=== PATIENT | female | born 1935 | race Caucasian/White ===

== ENCOUNTER 2016-09-06 05:44 | Day surgery (SDC) | payer MEDICARE ==
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
[~2016-09-06 05:44] MED LIST: ACET500CAP PO; AMB10 PO; CARD30 PO; HCTZ25B PO; KLOR-CON M2020 MEQ PO; MOTRIN IB200 MG PO; PAX20 PO; PEP20 PO; PRILO PO; PRIN10 PO; ZOCOR40 PO
[2016-09-06 06:14] LABS: HEMATOCRIT 39.9 % (36.0-48.0); HEMOGLOBIN 13.1 g/dL (12.0-16.0)
[2016-09-06 06:27] LABS: BUN (BLOOD UREA NITROGEN) 19 MG/DL (6-23); CALCIUM, SERUM 9.5 MG/DL (8.5-10.4); CHLORIDE, SERUM 105 MMOL/L (96-112); CO2 (CARBON DIOXIDE) 29 MMOL/L (24-34); CREATININE 1.06 MG/DL (0.55-1.02); GFR AFRICAN AMERICAN 58 ML/MIN (>=60); GFR NON AFRICAN AMERICAN 50 ML/MIN (>=60); GLUCOSE, SERUM 90 MG/DL (60-99); POTASSIUM, SERUM 3.8 MMOL/L (3.5-5.3); SODIUM, SERUM 141 MMOL/L (135-148)
== END 2016-09-06 23:59 | disposition home or self-care (01) ==
LOC: DMU 05:44
PROVIDERS: Anesthesiology; Thoracic Surgery (Cardiothoracic Vascular Surgery)
PROC: 07974ZX Drainage of Thorax Lymphatic, Percutaneous Endoscopic Approach, Diagnostic (ICD-10-PCS; principal; 2016-09-06 08:00)
DX: C34.32 Malignant neoplasm of lower lobe, left bronchus or lung (principal); R59.1 Generalized enlarged lymph nodes; I10 Essential (primary) hypertension; E78.00 Pure hypercholesterolemia, unspecified; K21.9 Gastro-esophageal reflux disease without esophagitis; F32.9 Major depressive disorder, single episode, unspecified; E78.2 Mixed hyperlipidemia; K57.90 Diverticulosis of intestine, part unspecified, without perforation or abscess without bleeding; M19.90 Unspecified osteoarthritis, unspecified site; Z88.4 Allergy status to anesthetic agent; Z86.73 Personal history of transient ischemic attack (TIA), and cerebral infarction without residual deficits; Z87.891 Personal history of nicotine dependence; Z78.0 Asymptomatic menopausal state; Z98.890 Other specified postprocedural states; Z97.2 Presence of dental prosthetic device (complete) (partial); Z79.899 Other long term (current) drug therapy; J44.9 Chronic obstructive pulmonary disease, unspecified
CPT/HCPCS: 80048; 85014; 85018; 88172; 88173; 88177; 88305; 93005; A9270-GY; C1725; J2370; J2405; J3010

== ENCOUNTER 2016-09-20 06:50 | Inpatient (IN) | payer MEDICARE ==
[2016-09-18 13:50] LABS: INTERNATIONAL NORMAL RATI 1.1 UNITS (-); PROTIME (NOT ORD) 13.6 SEC (12.0-14.5)
[2016-09-18 13:51] LABS: ASCORBIC ACID (UR NOT ORDER) 40 (NEG); BASOPHILS 0.2 %; BASOPHILS ABSOLUTE 0.01 10/3/uL (0.0-0.16); BILIRUBIN, URINE NEGATIVE (NEG); EOSINOPHILS 0.7 %; EOSINOPHILS ABSOLUTE 0.04 10/3/uL (0.0-0.53); HEMATOCRIT 39.2 % (36.0-48.0); HEMOGLOBIN 13.1 g/dL (12.0-16.0); IMMATURE GRANULOCYTES 0.3 %; IMMATURE GRANULOCYTES ABSOLUTE 0.02 10/3/uL (0.0-0.11); KETONE, URINE NEGATIVE (NEG); LEUKOCYTE ESTERASE(NOT OR NEG (NEG); LYMPHOCYTES 22.7 %; LYMPHOCYTES ABSOLUTE 1.35 10/3/uL (0.67-4.30); MEAN CORPUS HGB CONC 33.4 g/dL (32.0-36.0); MEAN CORPUSCULAR VOLUME 92.7 fL (80-100); MEAN PLATELET VOLUME 10.3 fL (9.2-13.0); MONOCYTES 14.6 %; MONOCYTES ABSOLUTE 0.87 10/3/uL (0.21-1.20); NEUTROPHILS 61.5 %; NEUTROPHILS ABSOLUTE 3.67 10/3/uL (2.02-8.40); PLATELET COUNT 291 10/3/uL (150-400); RBC DISTRIBUTION WIDTH 13.6 % (12.0-16.0); RED CELL COUNT 4.23 10/6/uL (4.0-5.6); WBC (NOT ORDERED) (RFLEX) < 1 (0-5)
[2016-09-18 13:52] LABS: MANUAL DIFF NO %
[2016-09-18 14:10] LABS: A/G RATIO 1.2 (0.7-1.9); ALBUMIN 3.8 G/DL (3.5-5.0); ALKALINE PHOSPHATASE 78 U/L (45-117); CALCIUM, SERUM 9.5 MG/DL (8.5-10.4); CHLORIDE, SERUM 101 MMOL/L (96-112); CO2 (CARBON DIOXIDE) 30 MMOL/L (24-34); GFR AFRICAN AMERICAN 70 ML/MIN (>=60); GFR NON AFRICAN AMERICAN 61 ML/MIN (>=60); GLOBULIN 3.2 G/DL (2.5-4.1); GLUCOSE, SERUM 88 MG/DL (60-99); PREALBUMIN 18.2 MG/DL (17.0-43.0); SGOT(AST) 17 U/L (5-40); SGPT(ALT) 15 U/L (5-65); SODIUM, SERUM 137 MMOL/L (135-148); TOTAL BILIRUBIN 0.3 MG/DL (0-1.2)
[2016-09-18 14:12] LABS: BUN (BLOOD UREA NITROGEN) 13 MG/DL (6-23)
--- NOTE | ~2016-09-20 | OP ---
Record Of Operation [facility] [address] [place]. [address] NAME: SALEEM ZELAYA : 39 STATUS : ADM IN PAT#: [id number] AGE: 81 ADM/REG DATE : 09/20/16 MR#: [id number] REPORT SERV DATE: 09/21/16 DICTATED BY: DAHIANA BECERRA JR. 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 POSTOPERATIVE DIAGNOSES: Left lower lobe squamous cell lung cancer, COPD, hypertension. NAME OF OPERATION: Bronchoscopy, left thoracoscopy with left lower lobectomy, complete mediastinal node dissection, perry stations 6, 7, 11L, and intercostal nerve block. RESIDENT SURGEON: Dr. Diomedes Avila. GLASS FORMING ENGINEER: Arias Son. ANESTHESIA: General endotracheal. FINDINGS: The patient was noted to have no endobronchial lesions to contraindication resection on bronchoscopy. There was a mass within the left lower lobe. It was easily palpable. There was no findings of metastatic or distant disease that would preclude us from resecting this lower lobe. On frozen section, her margins were negative. There was a squamous cell carcinoma seen within the lung parenchyma with the tumor being at least a centimeter away from the staple line. Final pathology is pending. There is minimal lymphadenopathy. Particularly there were no nodes seen in the #9 location. Nodes from the hilar AP window and subcarinal stations were sent separately. DETAILS OF OPERATION: After adequate general anesthesia, the patient was intubated. A bronchoscopy was performed noting no endobronchial lesions to contraindication to proceeding on with surgery. A left-sided double-lumen endotracheal tube was then placed. The patient was then positioned in the left lateral decubitus position. The right chest was prepped and draped in a routine sterile fashion. A small incision was made overlying the lower intercostal space. A separate anterior trocar incision was also made. Through these two incision sites, the above findings were noted. Chest was explored noting no unusual findings. The inferior pulmonary ligament was then divided. The inferior pulmonary vein was identified and transected. The superior pulmonary vein was preserved. Bronchus was divided with a MARGO stapler. Fissure and pulmonary artery divided with multiple firings of a MARGO stapler with tissue reinforcements. The specimen was placed within the specimen bag and withdrawn through the anterior trocar site. Frozen section confirmed the margins to be negative. Nodes from the AP window, subcarinal, and hilar regions were removed. Dissection in the inferior pulmonary ligament region revealed no significant lymphadenopathy. The chest was thoroughly irrigated with sterile water. An intercostal nerve block was performed. A 20-[place] chest tube was placed. The lung was reinflated. The trocar sites were closed with running Vicryl sutures. The skin was closed with running monofilament suture. A Dermabond dressing was applied. The procedure was terminated at this point. The patient tolerated the procedure well and taken back to the recovery room in stable condition. Record Of Operation [address] [place]. [address] NAME: SALEEM ZELAYA : 39 STATUS : ADM IN [facility]#: [id number] AGE: 81 ADM/REG DATE : 09/20/16 MR#: [id number] REPORT SERV DATE: 09/21/16 DICTATED BY: DAHIANA BECERRA JR. DATE: 09/20/16 REPORT STATUS : Draft TRANSCRIBED BY: FRANCIS DATE: 09/20/16 /FRANCIS Dahiana Becerra Jr., M.D. / [id number] CC: Josh Burris Jr., M.D. Erick Kimmerling, MD
[2016-09-20 13:34] LABS: BASOPHILS 0.1 %; BASOPHILS ABSOLUTE 0.01 10/3/uL (0.0-0.16); EOSINOPHILS 0.3 %; EOSINOPHILS ABSOLUTE 0.03 10/3/uL (0.0-0.53); HEMATOCRIT 34.2 % (36.0-48.0); HEMOGLOBIN 11.4 g/dL (12.0-16.0); IMMATURE GRANULOCYTES 0.2 %; IMMATURE GRANULOCYTES ABSOLUTE 0.02 10/3/uL (0.0-0.11); LYMPHOCYTES 8.5 %; LYMPHOCYTES ABSOLUTE 0.82 10/3/uL (0.67-4.30); MANUAL DIFF NO %; MEAN CORPUS HGB CONC 33.3 g/dL (32.0-36.0); MEAN CORPUSCULAR HEMOGLOB 30.3 pg (26.0-34.0); MEAN PLATELET VOLUME 10.3 fL (9.2-13.0); MONOCYTES 3.8 %; MONOCYTES ABSOLUTE 0.37 10/3/uL (0.21-1.20); NEUTROPHILS 87.1 %; NEUTROPHILS ABSOLUTE 8.39 10/3/uL (2.02-8.40); PLATELET COUNT 250 10/3/uL (150-400); RBC DISTRIBUTION WIDTH 13.6 % (12.0-16.0); RED CELL COUNT 3.76 10/6/uL (4.0-5.6); WHITE BLOOD CELLS 9.6 10/3/uL (4.5-10.5)
[2016-09-20 13:45] LABS: BUN (BLOOD UREA NITROGEN) 15 MG/DL (6-23); CHLORIDE, SERUM 103 MMOL/L (96-112); CO2 (CARBON DIOXIDE) 27 MMOL/L (24-34); CREATININE 0.83 MG/DL (0.55-1.02); GFR AFRICAN AMERICAN 78 ML/MIN (>=60); GFR NON AFRICAN AMERICAN 67 ML/MIN (>=60); POTASSIUM, SERUM 3.3 MMOL/L (3.5-5.3); SODIUM, SERUM 137 MMOL/L (135-148)
[2016-09-20 13:46] LABS: CALCIUM, SERUM 8.5 MG/DL (8.5-10.4); GLUCOSE, SERUM 124 MG/DL (60-99)
[2016-09-21 05:07] LABS: BASOPHILS 0 %; EOSINOPHILS 0 %; HEMATOCRIT 37.1 % (36.0-48.0); HEMOGLOBIN 12.3 g/dL (12.0-16.0); IMMATURE GRANULOCYTES 0.3 %; IMMATURE GRANULOCYTES ABSOLUTE 0.03 10/3/uL (0.0-0.11); LYMPHOCYTES 6.1 %; LYMPHOCYTES ABSOLUTE 0.66 10/3/uL (0.67-4.30); MEAN CORPUS HGB CONC 33.2 g/dL (32.0-36.0); MEAN CORPUSCULAR HEMOGLOB 30.4 pg (26.0-34.0); MEAN CORPUSCULAR VOLUME 91.8 fL (80-100); MEAN PLATELET VOLUME 10.5 fL (9.2-13.0); MONOCYTES ABSOLUTE 0.87 10/3/uL (0.21-1.20); NEUTROPHILS 85.6 %; NEUTROPHILS ABSOLUTE 9.31 10/3/uL (2.02-8.40); PLATELET COUNT 245 10/3/uL (150-400); RBC DISTRIBUTION WIDTH 13.4 % (12.0-16.0); RED CELL COUNT 4.04 10/6/uL (4.0-5.6); WHITE BLOOD CELLS 10.9 10/3/uL (4.5-10.5)
[2016-09-21 05:08] LABS: BUN (BLOOD UREA NITROGEN) 12 MG/DL (6-23); CHLORIDE, SERUM 100 MMOL/L (96-112); CO2 (CARBON DIOXIDE) 25 MMOL/L (24-34); CREATININE 0.89 MG/DL (0.55-1.02); GFR AFRICAN AMERICAN 71 ML/MIN (>=60); GFR NON AFRICAN AMERICAN 62 ML/MIN (>=60); GLUCOSE, SERUM 126 MG/DL (60-99); POTASSIUM, SERUM 3.6 MMOL/L (3.5-5.3); SODIUM, SERUM 135 MMOL/L (135-148)
[2016-09-21 05:11] LABS: MANUAL DIFF NO %
[2016-09-21] MEDS ORDERED: PCET PO (08:41)
== END 2016-09-21 11:07 | disposition home or self-care (01) | DRG 164 ==
LOC: SDC/OF 06:50 → PACU 12:56 → 5NO 14:41
PROVIDERS: Thoracic Surgery (Cardiothoracic Vascular Surgery)
PROC: 3E0T3BZ Introduction of Anesthetic Agent into Peripheral Nerves and Plexi, Percutaneous Approach (ICD-10-PCS; 2016-09-20)
PROC: 0BJ08ZZ Inspection of Tracheobronchial Tree, Via Natural or Artificial Opening Endoscopic (ICD-10-PCS; 2016-09-20)
PROC: 0BTJ4ZZ Resection of Left Lower Lung Lobe, Percutaneous Endoscopic Approach (ICD-10-PCS; principal; 2016-09-20 09:15)
PROC: 07B74ZX Excision of Thorax Lymphatic, Percutaneous Endoscopic Approach, Diagnostic (ICD-10-PCS; 2016-09-20 09:15)
DX: C34.32 Malignant neoplasm of lower lobe, left bronchus or lung (principal); I69.351 Hemiplegia and hemiparesis following cerebral infarction affecting right dominant side; J44.9 Chronic obstructive pulmonary disease, unspecified; I10 Essential (primary) hypertension; Z87.891 Personal history of nicotine dependence; E78.2 Mixed hyperlipidemia; K21.9 Gastro-esophageal reflux disease without esophagitis
CPT/HCPCS: 36415; 71010; 80048; 80053; 81001; 82962; 83036; 84134; 85025; 85610; 86850; 86900; 86901; 87641; 88305; 88307; 88309; 88313; 88331; 88332; 88341; 88342; 88360; 94640; A9270-GY; J0690; J2250; J2370; J2405; J2710; J2795; J3010